=== PATIENT | female | born 2005 | race Asian ===

== ENCOUNTER 2023-04-21 15:43 | Emergency (ER) | payer SELFPAY ==
[~2023-04-21] VITALS: Ht 157.5 cm; Wt 56.7 kg
[2023-04-21 15:50] VITALS: BP 110/66; PULSE 80; RESP 18; TEMP 98.1; O2SAT 98
[2023-04-21] MEDS: CYCLOBENZAPRINE 10 MG TAB PO ONE (16:28)
[2023-04-21] MEDS ORDERED: CYCL-711 PO (18:11)
[2023-04-21] MEDS ORDERED: IBUP-2213 PO (18:11)
[2023-04-21 18:44] VITALS: BP 134/70; PULSE 70; RESP 18; TEMP 98.3; O2SAT 97
== END 2023-04-21 18:43 | disposition home or self-care (01) ==
LOC: MED 15:43
DX: M54.16 Radiculopathy, lumbar region (principal); Z79.899 Other long term (current) drug therapy
CPT/HCPCS: 72100; 81025; 99283